=== PATIENT | male | born 1945 | race Caucasian/White ===

== ENCOUNTER 2024-06-19 09:56 | Emergency (ER) | payer OTHER ==
[~2024-06-19] VITALS: Ht 177.8 cm; Wt 81.6 kg
[2024-06-19 10:00] VITALS: BP 151/81; PULSE 62; RESP 18; TEMP 97.7; O2SAT 98
[2024-06-19 10:15] VITALS: BP 151/81; PULSE 62; RESP 18; TEMP 97.7
[2024-06-19 10:16] VITALS: O2SAT 98
[2024-06-19] MEDS ORDERED: ACET500T99 PO (13:28)
== END 2024-06-19 13:38 | disposition home or self-care (01) ==
LOC: MED 09:56 → EDBD 09:56 → MED 13:38
DX: S43.402A Unspecified sprain of left shoulder joint, initial encounter (principal); S70.02XA Contusion of left hip, initial encounter; R03.0 Elevated blood-pressure reading, without diagnosis of hypertension; S50.312A Abrasion of left elbow, initial encounter; S50.311A Abrasion of right elbow, initial encounter; S80.812A Abrasion, left lower leg, initial encounter; S80.811A Abrasion, right lower leg, initial encounter; E11.9 Type 2 diabetes mellitus without complications; I10 Essential (primary) hypertension; Z90.49 Acquired absence of other specified parts of digestive tract; Z98.890 Other specified postprocedural states; Z79.899 Other long term (current) drug therapy; W10.8XXA Fall (on) (from) other stairs and steps, initial encounter; Y92.89 Other specified places as the place of occurrence of the external cause; Y93.89 Activity, other specified; Y99.8 Other external cause status
CPT/HCPCS: 73030; 73502; 99284